=== PATIENT | male | born 1960 | race African-American/Black ===

== ENCOUNTER 2019-05-02 22:26 | Emergency (ER) | payer OTHER ==
[~2019-05-02] VITALS: Ht 177.8 cm; Wt 100.0 kg
[2019-05-02] MEDS ORDERED: OXYMETAZOLINE HCL NASAL SPRAY 15ML BOTHNSTRLS SCH (22:45)
[2019-05-02 23:57] VITALS: BP 146/91
== END 2019-05-02 23:58 | disposition home or self-care (01) ==
LOC: ER 22:26
DX: R04.0 Epistaxis (principal); I10 Essential (primary) hypertension; M10.9 Gout, unspecified
CPT/HCPCS: 99283

== ENCOUNTER 2020-05-14 04:20 | Emergency (ER) | payer OTHER ==
[~2020-05-14] VITALS: Ht 162.6 cm; Wt 105.0 kg
[2020-05-14 05:58] VITALS: BP 137/67
== END 2020-05-14 07:00 | disposition home or self-care (01) ==
LOC: ER 04:36
DX: R04.0 Epistaxis (principal); I10 Essential (primary) hypertension
CPT/HCPCS: 30901; 99283; 99284